=== PATIENT | male | born 1940 | race Caucasian/White ===

== ENCOUNTER 2017-02-17 09:47 | Day surgery (SDC) | payer MEDICARE, BC ==
[~2017-02-17] VITALS: Ht 175.3 cm; Wt 68.1 kg
[2017-02-17 10:54] LABS: AUTOMATED NEUTROPHIL # 3.3 TH/MM3 (1.8-7.7); BASOPHIL % 0.2 % (0.0-2.0); EOSINOPHIL % 0.8 % (0.0-4.0); HEMATOCRIT 43.4 % (39.0-51.0); HEMO FLAGS DIFF FINAL; LYMPH % 20.1 % (9.0-44.0); LYMPHOCYTE # 0.9 TH/MM3 (1.0-4.8); MEAN CELL VOLUME 95.8 FL (80.0-100.0); MEAN CORPUSCULAR HEMOGLOBIN 31.7 PG (27.0-34.0); MEAN CORPUSCULAR HGB CONC 33.1 % (32.0-36.0); MONO % 8.8 % (0.0-8.0); NEUT % 70.1 % (16.0-70.0); PLATELET COUNT 155 TH/MM3 (150-450); RED BLOOD COUNT 4.53 MIL/MM3 (4.50-5.90); RED CELL DISTRIBUTION WIDTH 13.3 % (11.6-17.2); WHITE BLOOD COUNT 4.6 TH/MM3 (4.0-11.0)
[2017-02-17 11:03] LABS: APTT (PATIENT) 28.3 SEC (24.3-30.1); INTERNATIONAL NORMALIZED RATIO 1.2 RATIO; PROTHROMBIN TIME - PATIENT 13.7 SEC (9.8-11.6)
[2017-02-17 11:11] LABS: POTASSIUM 3.9 MEQ/L (3.5-5.1)
[2017-02-17 11:19] VITALS: BP 168/83; PULSE 54; RESP 18; TEMP 97.9; O2SAT 96
[2017-02-17] MEDS ORDERED: ACIP20TA6 PO (11:26)
[2017-02-17] MEDS ORDERED: TIMO0.5S30 RIGHT EYE (11:26)
[2017-02-17] MEDS ORDERED: ROSU10 PO (11:26)
[2017-02-17] MEDS ORDERED: COUM5TAB PO (11:26)
[2017-02-17] MEDS ORDERED: NS 1000P @30 MLS/HR (KVO) IV SCH (12:00)
[2017-02-17] MEDS ORDERED: IOHEXOL 350 MG/ML 50 ML BTL (for Cath Lab) OTHER ONE (12:53)
[2017-02-17] MEDS ORDERED: HEPARIN-NS/PF INJ 500 ML ONE (13:02)
[2017-02-17] MEDS ORDERED: IOHEXOL 350 MG/ML 100 ML BTL (for Cath Lab) OTHER ONE (13:50)
--- NOTE | 2017-02-17 14:35 | MA ---
cc: PEACE BARKER M.D. DATE: 02/17/2017 PROCEDURE Left heart catheterization, left ventriculography, coronary angiography. INDICATION Coronary artery disease, unstable angina, [place] [employer] Class IV angina, small fixed defect in the posterior wall 07/09/2016, EF 57%, new-onset angina, history of atrial fibrillation. PROCEDURE The patient was brought to the cardiac catheterization lab, prepped and draped in the usual sterile fashion. 10 ccs of 1% lidocaine was used to locally anesthetize the right common femoral artery. A 4-[place] sheath was successfully placed in the right common femoral artery. A 4-[place] JR-4, JL-4 catheters were used to perform left and right coronary angiography, left ventriculography. FINDINGS LV pressure is 150/3-5. Ejection fraction 60%. Right coronary artery is large and dominant. It has mild diffuse disease in proximal segment up to 20% angiographically. The proximal mid right PDA has 40-50% stenosis. The mid segment has a 30-40% stenosis. Also note that the proximal right coronary artery has a long 40-50% stenosis. Left main coronary artery has no significant disease angiographically. Left circumflex vessel is large with no significant disease angiographically. First obtuse marginal vessel is a medium to large size vessel with an ostial 30-40% stenosis. There are three posterolateral arteries off the distal left circumflex vessel which are small to medium in size and no significant disease angiographically. LAD is transapical, has mild to moderate diffuse disease in the midsegment up to 30-40% angiographically. First diagonal artery is a medium-sized vessel, no significant disease angiographically. Second diagonal artery is a medium to large vessel approaching the apex with an ostial proximal 20-30% stenosis. CONCLUSION 1. Angiographically mild to moderate three-vessel coronary artery disease and a right dominant system. Compared to his previous angiogram it appears that he has plaque regression. 2. Normal LV systolic function, ejection fraction 60%. 3. Recommend continue medical management of coronary artery disease. 4. I have instructed the patient to resume his warfarin at 05:00 p.m. [email or web address]. The time of the procedure is 1:30 p.m. I have also instructed him to follow up with me on February 20, 2017. MD ANGELINA Hernandez/TLL /1:37 PM /2:15 PM
--- NOTE | 2017-02-17 15:58 | EKG ---
Date Performed: 02/17/2017 Time Performed: 11:22:56 PTAGE: 76 years EKG: Sinus bradycardia with PAC(s). Poor R wave progression - probable normal variant Anterior T wave changes are nonspecific Borderline ECG NO PREVIOUS TRACING DOCTOR: Ramu Workman Interpretating Date/Time 02/17/2017 15:57:44
== END 2017-02-17 17:30 | disposition home or self-care (01) ==
LOC: EDBD 09:47 → HCAT 09:47 → HDIC 09:49 → HCAT 17:30
PROVIDERS: ATTEND Internal Medicine Interventional Cardiology
DX: I25.119 Atherosclerotic heart disease of native coronary artery with unspecified angina pectoris (principal); I48.91 Unspecified atrial fibrillation; Z79.01 Long term (current) use of anticoagulants
CPT/HCPCS: 80048; 85025; 85610; 85730; 93005; 93458; C1769; C1893; J1644; Q9967

== ENCOUNTER → 2017-08-25 | Outpatient (CLI) | payer MEDICARE, BC ==
[~2017-08-25] MED LIST: ACIP20TA6 PO; COUM5TAB PO; ROSU10 PO; TIMO0.5S30 RIGHT EYE
[2017-08-25 12:59] LABS: ALT (GPT) 35 U/L (12-78); ANION GAP 9 MEQ/L (5-15); AST (GOT) 20 U/L (15-37); BICARBONATE 24.2 MEQ/L (21.0-32.0); BLOOD UREA NITROGEN 18 MG/DL (7-18); CHLORIDE 109 MEQ/L (98-107); GLOMERULAR FILTRATION RATE 90 ML/MIN (>89); GLUCOSE,FASTING 103 MG/DL (74-99); POTASSIUM 4.1 MEQ/L (3.5-5.1); SODIUM (NA) 142 MEQ/L (136-145)
[2017-08-25 13:03] LABS: ALKALINE PHOSPHATASE 83 U/L (45-117); HDL CHOLESTEROL 39.3 MG/DL (40.0-60.0); LDL CHOLESTEROL 49 MG/DL (0-99); LDL CHOLESTEROL DIRECT 64 MG/DL (0-99); TOTAL BILIRUBIN ADULT 0.9 MG/DL (0.2-1.0)
[2017-08-25 13:06] LABS: CREATINE KINASE 39 U/L (39-308)
== END ==
LOC: ELAB 08:15
PROVIDERS: ATTEND Internal Medicine Interventional Cardiology
DX: I25.10 Atherosclerotic heart disease of native coronary artery without angina pectoris (principal)
CPT/HCPCS: 36415; 80053; 80061; 82248; 82550; 83721